=== PATIENT | female | born 1995 | race Caucasian/White ===

== ENCOUNTER 2023-01-08 01:39 | Emergency (ER) | payer BC ==
[2023-01-08 01:48] VITALS: TEMP 97.8
[2023-01-08] MEDS ORDERED: SODIUM CHLORIDE 0.9% 1,000 ML IV ONE (01:57)
[2023-01-08] MEDS ORDERED: KETOROLAC 15 MG/ML 1 ML VIAL IVP STA (02:18)
[2023-01-08 02:26] LABS: ALT 30 U/L (4-34); AST 26 U/L (14-36); African American GFR (CKD) >90 (>60 ml/min/1.73 sqM); Albumin 4.4 g/dL (3.5-5.0); Alkaline Phosphatase 119 U/L (38-126); Anion Gap 9 mmol/L; Blood Urea Nitrogen 11 mg/dL (7-17); Calcium 9.3 mg/dL (8.4-10.2); Carbon Dioxide 26 mmol/L (22-30); Chloride 102 mmol/L (98-107); Glucose 116 mg/dL (74-99); Lipase 46 U/L (23-300); Magnesium 1.9 mg/dL (1.6-2.3); Non-African American GFR(CKD) >90 (>60 ml/min/1.73 sqM); Potassium 3.7 mmol/L (3.5-5.1); Sodium 137 mmol/L (137-145); Total Protein 7.6 g/dL (6.3-8.2)
[2023-01-08] MEDS ORDERED: PROMETHAZINE SUPPOSITORY 25 MG SUPP RECTAL STA ×2 (02:34→03:52)
[2023-01-08] MEDS: PROMETHAZINE SUPPOSITORY 25 MG SUPP RECTAL STA ×2 (02:48→03:54)
--- NOTE | 2023-01-08 02:48 | ED ---
General Adult HPI - General Chief complaint: Nausea/Vomiting/Diarrhea Stated complaint: Vomiting Time Seen by Provider: 01/08/23 01:49 Source: patient Mode of arrival: ambulatory Limitations: no limitations - History of Present Illness Initial comments: This is a 27-year-old female with a past medical history including epilepsy presented to the emergency department for nausea and vomiting. The patient stated started at 6 AM today and was persistent throughout the day. The patient stated that she has had episodes like this in the past. 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 The patient stated that she needed to work on Wednesday morning at 6 AM and would like to be able to have her nausea and vomiting under control. The patient denied any abdominal pain and denied any other acute distress. The patient denied fevers and chills. - Related Data Previous Rx's Medication Instructions Recorded Ondansetron Odt [Zofran Odt] 4 mg PO Q8HR PRN #20 tab 01/08/23 Promethazine Suppository 25 mg RECTAL BID #14 supp 01/08/23 [Phenergan] Allergies Allergy/AdvReac Type Severity Reaction Status Date / Time Penicillins Allergy Rash/Hives Verified 01/08/23 01:48 Review of Systems ROS Statement: Those systems with pertinent positive or pertinent negative responses have been documented in the HPI. ROS Other: All systems not noted in ROS Statement are negative. Past Medical History Past Medical History: Seizure Disorder History of Any Multi-Drug Resistant Organisms: None Reported Past Surgical History: No Surgical Hx Reported Past Psychological History: No Psychological Hx Reported Smoking Status: Never smoker Past Alcohol Use History: None Reported Past Drug Use History: None Reported General Exam Limitations: no limitations General appearance: alert, in no apparent distress Head exam: Present: atraumatic, normocephalic, normal inspection Eye exam: Present: normal appearance, PERRL Pupils: Present: normal accommodation ENT exam: Present: normal exam, normal oropharynx, mucous membranes moist Neck exam: Present: normal inspection, full ROM Respiratory exam: Present: normal lung sounds bilaterally Cardiovascular Exam: Present: regular rate, normal rhythm, normal heart sounds GI/Abdominal exam: Present: soft, normal bowel sounds Extremities exam: Present: normal inspection, full ROM Back exam: Present: normal inspection, full ROM Neurological exam: Present: alert, oriented X3, CN II-XII intact Psychiatric exam: Present: normal affect, normal mood Skin exam: Present: warm, dry Course Vital Signs 01/08/23 01:46 Temperature 97.8 F Pulse Rate 108 H Respiratory 20 Rate Blood Pressure 134/96 O2 Sat by Pulse 99 Oximetry Medical Decision Making - Medical Decision Making Was pt. sent in by a medical professional or institution (, [facility], [facility], urgent care, hospital, or long term...) When possible be specific @ -No Did you speak to anyone other than the patient for history (EMS, parent, family, police, friend...)? What history was obtained from this source @ -No Did you review nursing and triage notes (agree or disagree)? Why? @ -I reviewed and agree with nursing and triage notes Were old charts reviewed (outside hosp., previous admission, EMS record, old EKG, old radiological studies, urgent care reports/EKG's, long term records)? Report findings @ -No old charts were reviewed Differential Diagnosis (chest pain, altered mental status, abdominal pain women, abdominal pain men, vaginal bleeding, weakness, fever, dyspnea, syncope, headache, dizziness, GI bleed, back pain, seizure, CVA, palpatations, mental health)? @ -Gastroenteritis, food poisoning, gastritis EKG interpreted by me (3pts min.). @ -None X-rays interpreted by me (1pt min.). @ -None done CT interpreted by me (1pt min.). @ -None done U/S interpreted by me (1pt. min.). @ -None done What testing was considered but not performed or refused? (CT, X-rays, U/S, labs)? Why? @ -None What meds were considered but not given or refused? Why? @ -None Did you discuss the management of the patient with other professionals (professionals i.e. , [facility], [facility], lab, RT, psych nurse, community mental health social worker, automation tender, teacher, drug abuse resistance education officer, watch case polisher)? Give summary @ -No Was smoking cessation discussed for >3mins.? @ -No Was critical care preformed (if so, how long)? @ -No Were there social determinants of health that impacted care today? How? ( Homelessness, low income, unemployed, alcoholism, drug addiction, transportation, low edu. Level, literacy, decrease access to med. care, fpc, rehab)? @ -No Was there de-escalation of care discussed even if they declined (Discuss DNR or withdrawal of care, Hospice)? DNR status @ -No What co-morbidities impacted this encounter? (DM, HTN, Smoking, COPD, CAD, Cancer, CVA, ARF, Chemo, Hep., AIDS, mental health diagnosis, sleep apnea, morbid obesity)? @ -Epilepsy Was patient admitted / discharged? Hospital course, mention meds given and route, prescriptions, significant lab abnormalities, going to OR and other pertinent info. @ -The patient was seen and evaluated emergency department. Physical exam, the patient was resting in bed without any acute distress. Vital signs admission were stable. Laboratory workup was obtained and was all within normal limits. The patient did receive 1 L normal saline fluid. Per the patient's request, I did order the patient rectal Phenergan as well as Toradol. The patient denied at this time. The patient did have improvement of her pain and symptoms and did tolerate a by mouth challenge. The patient was given a prescription for Phenergan to be taken at home. The patient was also advised report back to the emergency department if she worsening pain or distress. The patient was agreeable to this and was discharged home in stable condition. Undiagnosed new problem with uncertain prognosis? @ -No Drug Therapy requiring intensive monitoring for toxicity (Heparin, Nitro, Insulin, Cardizem)? @ -No Were any procedures done? @ -No Diagnosis/symptom? @ -Nausea, vomiting, NOS Acute, or Chronic, or Acute on Chronic? @ -Acute Uncomplicated (without systemic symptoms) or Complicated (systemic symptoms)? @ -Uncomplicated Side effects of treatment? @ -No Exacerbation, Progression, or Severe Exacerbation? @ -No Poses a threat to life or bodily function? How? (Chest pain, [place], [place], pneumonia, PE, COPD, DKA, ARF, appy, cholecystitis, CVA, Diverticulitis, Homicidal, Suicidal, threat to staff... and all critical care pts) @ -No - Lab Data Result diagrams: 01/08/23 02:01 01/08/23 02:01 Lab Results 01/08/23 01/08/23 Range/Units 02:01 02:01 WBC 15.3 H (3.8-10.6) k/uL RBC 4.76 (3.80-5.40) m/uL Hgb 15.3 (11.4-16.0) gm/dL Hct 44.2 (34.0-46.0) % MCV 93.0 (80.0-100.0) fL MCH 32.1 (25.0-35.0) pg MCHC 34.5 (31.0-37.0) g/dL RDW 12.2 (11.5-15.5) % Plt Count 185 (150-450) k/uL MPV 9.4 Sodium 137 (137-145) mmol/L Potassium 3.7 (3.5-5.1) mmol/L Chloride 102 (98-107) mmol/L Carbon Dioxide 26 (22-30) mmol/L Anion Gap 9 mmol/L BUN 11 (7-17) mg/dL Creatinine 0.77 (0.52-1.04) mg/dL Est GFR (CKD-EPI)AfAm >90 (>60 ml/min/1.73 sqM) Est GFR (CKD-EPI)NonAf >90 (>60 ml/min/1.73 sqM) Glucose 116 H (74-99) mg/dL Calcium 9.3 (8.4-10.2) mg/dL Magnesium 1.9 (1.6-2.3) mg/dL Total Bilirubin 1.0 (0.2-1.3) mg/dL AST 26 (14-36) U/L ALT 30 (4-34) U/L Alkaline Phosphatase 119 (38-126) U/L Total Protein 7.6 (6.3-8.2) g/dL Albumin 4.4 (3.5-5.0) g/dL Lipase 46 (23-300) U/L Disposition Clinical Impression: Nausea & vomiting Disposition: HOME SELF-CARE Condition: Stable Instructions (If sedation given, give patient instructions): Acute Nausea and Vomiting (ED) Prescriptions: Promethazine Suppository [Phenergan] 25 mg RECTAL BID #14 supp Ondansetron Odt [Zofran Odt] 4 mg PO Q8HR PRN #20 tab PRN Reason: Nausea Is patient prescribed a controlled substance at d/c from ED?: No Referrals: Yash Nicole MD [Primary Care Provider] - 1-2 days Time of Disposition: 03:30
[2023-01-08 02:56] LABS: HCT 44.2 % (34.0-46.0); HGB 15.3 gm/dL (11.4-16.0); MCH 32.1 pg (25.0-35.0); MCHC 34.5 g/dL (31.0-37.0); Mean Platelet Volume 9.4; Platelet Count 185 k/uL (150-450); RBC 4.76 m/uL (3.80-5.40); RDW 12.2 % (11.5-15.5); WBC 15.3 k/uL (3.8-10.6)
[2023-01-08 04:02] VITALS: BP 126/79; PULSE 65; RESP 18
[2023-01-08 04:05] LABS: Band Neutrophils % 1 %; Eosinophils # (M) 0.15 k/uL (0-0.7); Lymphocytes # (M) 0.92 k/uL (1.0-4.8); Monocytes # (M) 0.31 k/uL (0-1.0); Neutrophils % (M) 90 %; Nucleated Red Blood Cells 0 /100 WBC (0-0); Total Cells Counted 100
== END 2023-01-08 04:01 | disposition home or self-care (01) ==
LOC: EC 01:39
DX: R11.2 Nausea with vomiting, unspecified (principal); Z88.0 Allergy status to penicillin
CPT/HCPCS: 36415; 80053; 83690; 83735; 85025; 99284; 96374; 96361; J1885